=== PATIENT | male | born 1965 | race Two or more races ===

== ENCOUNTER 2023-06-18 17:54 | Emergency (ER) | payer SELFPAY ==
[~2023-06-18] VITALS: Ht 172.7 cm; Wt 90.9 kg
[~2023-06-18 17:54] MED LIST: NALOXONE HCL 0.4 MG/ML VIAL ONE
[2023-06-18] MEDS ORDERED: NALOXONE HCL 0.4 MG/ML VIAL IV ONE (18:00)
[2023-06-18 18:50] LABS: Acetaminophen < 2.0 UG/ML (10.0-20.0); Alanine Aminotransferase 19 U/L (7-40); Albumin 4.5 g/dL (3.2-4.8); Alkaline Phosphatase 76 U/L (46-116); Anion Gap 5 (5-15); Aspartate Aminotransferase 15 U/L (13-40); BUN/Creatinine Ratio 10.2 (10.0-20.0); Basophils # (auto) 0 10 ^3/uL (0-0.2); Basophils % (auto) 0.5 % (0.0-2.0); Bilirubin, Total 0.4 mg/dL (0.2-1.0); Blood Alcohol 5.5 mg/dL (<10); Blood Urea Nitrogen 12 mg/dL (9-23); Calcium 9.1 mg/dL (8.7-10.4); Carbon Dioxide 27 mmol/L (20-30); Chloride 107 mmol/L (98-107); Eosinophils # (auto) 0.7 10 ^3/uL (0-0.8); Eosinophils % (auto) 13.6 % (0.0-7.0); Glucose 138 mg/dL (74-106); Hemoglobin 14.3 g/dL (13.5-17.5); Lymphocytes # (auto) 1.7 10 ^3/uL (0.4-5.4); Lymphocytes % (auto) 32.1 % (10.0-50.0); Mean Corpuscular Hemoglobin 27.8 pg (28.0-32.0); Mean Corpuscular Hgb Conc. 32.6 g/dL (32.0-36.0); Mean Corpuscular Volume 85.4 fL (80.0-100.0); Monocytes # (auto) 0.6 10 ^3/uL (0-1.3); Monocytes % (auto) 11.3 % (0.0-12.0); Neutrophils # (auto) 2.3 10 ^3/uL (1.6-8.6); Neutrophils % (auto) 42.5 % (37.0-80.0); Nucleated Red Blood Cells % 0.1 %; Potassium 4.1 mmol/L (3.5-5.1); Red Blood Cells 5.16 10^6/uL (4.5-5.90); Red Cell Distribution Width 14.2 % (11.8-14.3); Sodium 139 mmol/L (136-145); Total Protein 7.7 g/dL (5.7-8.2); White Blood Cell 5.4 10^3/uL (4.4-10.8)
[2023-06-18 19:20] LABS: Salicylate < 3.0 mg/dL (2.8-20.0)
[2023-06-18 20:00] VITALS: BP 158/79; PULSE 74; RESP 16; TEMP 97.6; O2SAT 100
== END 2023-06-18 20:09 | disposition home or self-care (01) ==
LOC: ER 17:54
DX: T43.651A Poisoning by methamphetamines accidental (unintentional), initial encounter (principal); F17.210 Nicotine dependence, cigarettes, uncomplicated; F15.90 Other stimulant use, unspecified, uncomplicated; Y92.89 Other specified places as the place of occurrence of the external cause
CPT/HCPCS: 36415; 70450; 80053; 80320; 80329; 85025; 93005; 96374; 99285; J2310